=== PATIENT | female | born 1995 ===

== ENCOUNTER 2019-06-21 11:34 | Emergency (ER) | payer OTHER ==
[2019-06-21 11:42] VITALS: BP 112/66
[2019-06-21] MEDS ORDERED: Albuterol 2.5 MG/3 ML NEB.SOL* (0.083%) INH ONE (12:52)
[2019-06-21] MEDS ORDERED: Ipratropium 0.5MG/2.5ML NEB* 0.5 MG/2.5 ML NEB.SOLN INH ONE (12:52)
[2019-06-21] MEDS ORDERED: predniSONE TAB* 20 MG PO ONE (12:52)
--- NOTE | 2019-06-21 13:28 | UC ---
Respiratory Complaint HPI - HPI Summary HPI Summary: 24 yo female with 3-4 day hx of runny nose /wheezing/ cough and myalgias no fever no AGUILERA using rescue inhaler - History of Current Complaint Chief Complaint: UCRespiratory Stated Complaint: COUGH Time Seen by Provider: 06/21/19 12:45 Hx Obtained From: Patient Onset/Duration: Gradual Onset, Lasting Days Timing: Constant Severity Initially: Mild Severity Currently: Moderate Pain Intensity: 5 Pain Scale Used: Adult Non Verbal Character: Cough: Nonproductive Aggravating Factors: Deep Breaths, Recumbent Position Alleviating Factors: Bronchodilator Associated Signs And Symptoms: Positive: Wheezing, Nasal Congestion, Hoarseness , Sinus Discomfort - Allergies/Home Medications Allergies/Adverse Reactions: Allergies Allergy/AdvReac Type Severity Reaction Status Date / Time No Known Allergies Allergy Verified 06/21/19 11:42 Home Medications: Home Medications Dm/P-Ephed/Acetaminoph/Doxylam [Gabbi [place] Plus Severe 10-12.5-20-650 mg] 1 pow PO 06/21/19 [History] guaiFENesin [Mucinex] 600 mg PO 06/21/19 [History] PMH/Surg Hx/FS Hx/Imm Hx Previously Healthy: Yes Respiratory History: Asthma, Bronchitis - Surgical History Surgical History: None - Family History Known Family History: Positive: Hypertension, Diabetes Negative: Respiratory Disease - Social History Alcohol Use: Occasionally Substance Use Type: None Smoking Status (MU): Never Smoked Tobacco Review of Systems All Other Systems Reviewed And Are Negative: Yes Constitutional: Positive: Fatigue Skin: Positive: Negative Eyes: Positive: Negative ENT: Positive: Nasal Discharge, Sinus Congestion Respiratory: Positive: Shortness Of Breath - with exertion, Cough Cardiovascular: Positive: Negative Gastrointestinal: Positive: Negative Genitourinary: Positive: Negative Motor: Positive: Negative Neurovascular: Positive: Negative Musculoskeletal: Positive: Negative Neurological: Positive: Negative Psychological: Positive: Negative Physical Exam Triage Information Reviewed: Yes Appearance: Well-Appearing, No Pain Distress, Well-Nourished Vital Signs: Initial Vital Signs Temp 98.4 F 06/21/19 11:39 Pulse 93 06/21/19 11:39 Resp 18 06/21/19 11:39 BP 112/66 06/21/19 11:39 Pulse Ox 100 06/21/19 11:39 Vital Signs Reviewed: Yes Eyes: Positive: Conjunctiva Clear ENT: Positive: Normal ENT inspection, Hearing grossly normal, Pharynx normal, Nasal congestion, Nasal drainage, TMs normal, Sinus tenderness - slight, Uvula midline. Negative: Trismus, Muffled voice, Hoarse voice Neck: Positive: Supple, Nontender, No Lymphadenopathy Respiratory Exam: Normal Respiratory: Positive: Lungs clear, Normal breath sounds, No respiratory distress, No accessory muscle use Cardiovascular: Positive: RRR, No Murmur Neurological: Positive: Alert Psychological Exam: Normal Skin Exam: Normal Re-Evaluation - Re-Evaluation First Eval Re-Evaluation Time: 13:27 Change: Improved - better air movement, subjectively much improved Respiratory Course/Dx - Differential Dx/Diagnosis Provider Diagnosis: Viral URI with cough, Bronchospasm Discharge ED - Sign-Out/Discharge Documenting (check all that apply): Patient Departure All imaging exams completed and their final reports reviewed: No Studies - Discharge Plan Condition: Stable Disposition: HOME Prescriptions: predniSONE [Deltasone 20 MG TAB] 40 mg PO DAILY #10 tab Patient Education Materials: Bronchospasm (ED) Forms: *School Release Referrals: No Primary Care Phys,NOPCP [Primary Care Provider] - Additional Instructions: use your inhaler 2 puffs 4x day for 3-4 days then as needed for wheezing I suggest you use you flonase 2 sprays each nostril twice daily for 2 weeks recheck in 4 days if not better recheck sooner for high fever or worsening symptoms - Billing Disposition and Condition Condition: STABLE Disposition: Home
== END 2019-06-21 13:33 | disposition home or self-care (01) ==
LOC: UCEAST 11:34
DX: J06.9 Acute upper respiratory infection, unspecified (principal); J98.01 Acute bronchospasm
CPT/HCPCS: 99202; G0463; J7512